=== PATIENT | female | born 1985 | race Asian ===

== ENCOUNTER 2018-03-30 00:37 | Emergency (ER) | payer MEDICAID ==
[~2018-03-30] VITALS: Ht 160 cm; Wt 45.0 kg
[2018-03-30] MEDS ORDERED: SODIUM CHLORIDE 0.9% 1,000 ML IV ONE ×2 (01:22→02:23)
[2018-03-30] MEDS ORDERED: ONDANSETRON HCL 4MG/2ML INJ IV STA (01:22)
[2018-03-30 02:01] LABS: BASOPHILS % 0.4 % (0.0-2.0); EOSINOPHILS % 0.1 % (0.0-5.0); HEMATOCRIT. 37.8 % (36.0-48.0); HEMOGLOBIN. 12.8 g/dL (12.0-16.0); MEAN CORPUSCULAR HEMOGLOBIN 31.5 pg (28.0-32.0); MEAN CORPUSCULAR VOLUME 93.3 fL (81.0-99.0); MEAN PLATELET VOLUME 7.6 fl (7.4-10.4); MONOCYTES % 4.8 % (2.0-8.0); NEUTROPHILS % 83.7 % (40.0-76.0); PLATELET 247 x1000/uL (130-400); RED BLOOD CELL COUNT 4.05 mill/uL (4.2-5.4); RED CELL DISTRIBUTION WIDTH 13.4 % (11.6-14.6)
[2018-03-30 02:07] LABS: CHLORIDE 107 mEq/L (98-107)
[2018-03-30 02:10] LABS: ETHANOL BLOOD 208 mg/dL
[2018-03-30 02:54] LABS: HCG SCREEN NEGATIVE
[2018-03-30] MEDS ORDERED: ONDANSETRON 4MG ODT PO ONE (06:00)
[2018-03-30 06:08] VITALS: BP 64/57
== END 2018-03-30 06:14 | disposition home or self-care (01) ==
LOC: ER 00:37
DX: T51.0X1A Toxic effect of ethanol, accidental (unintentional), initial encounter (principal); G92 Toxic encephalopathy; R11.2 Nausea with vomiting, unspecified; F12.10 Cannabis abuse, uncomplicated; Z88.0 Allergy status to penicillin; Y92.89 Other specified places as the place of occurrence of the external cause
CPT/HCPCS: 36415; 80053; 83690; 84484; 84703; 85025; 93005; 96360; 96361; 99284; G0482; J2405; J7030; Q0162